=== PATIENT | female | born 1945 | race Hispanic/Latino ===

== ENCOUNTER 2016-09-14 09:12 | Outpatient (CLI) | payer MEDICARE ==
--- NOTE | 2016-09-14 15:58 | Mammography Report ---
BILATERAL DIGITAL SCREENING MAMMOGRAM with CAD: 09/14/16 09:12:00 CLINICAL: Routine screening. COMPARISON:09/02/15 FINDINGS: The breasts are predominantly fatty.Numerous benign oil cysts in the right breast. Bilateral benign calcifications. Stable bilateral circumscribed low density masses. No new mass, architectural distortion or suspicious calcifications. IMPRESSION: No mammographic evidence of malignancy. BI-RADS CATEGORY: 2 -- Benign RECOMMENDATION: Routine mammographic screening in one year. COMMENT: Patient follow-up letters are generated by our [employer] application.
== END 2016-09-14 09:13 | disposition home or self-care (01) ==
LOC: SPVWC 09:12
PROVIDERS: ATTEND Nurse Practitioner
DX: Z12.31 Encounter for screening mammogram for malignant neoplasm of breast (principal)
CPT/HCPCS: 77067; G0202

== ENCOUNTER 2017-09-16 09:53 | Outpatient (CLI) | payer MEDICARE ==
--- NOTE | 2017-09-16 14:53 | Mammography Report ---
BILATERAL DIGITAL SCREENING MAMMOGRAM with CAD: 09/16/17 09:53:00 CLINICAL: Routine screening. COMPARISON:09/14/16 FINDINGS: The breasts are mostly fatty with a few bilateral residual retroareolar fibroglandular densities.Numerous benign oil cysts of the right breast. Stable bilateral low density circumscribed masses and bilateral benign calcifications. No new mass, architectural distortion or suspicious calcifications. IMPRESSION: No mammographic evidence of malignancy. BI-RADS CATEGORY: 2 -- Benign RECOMMENDATION: Routine mammographic screening in one year. COMMENT: Patient follow-up letters are generated by our [employer] application.
== END 2017-09-16 09:54 | disposition home or self-care (01) ==
LOC: SPVWC 09:53
PROVIDERS: ATTEND Nurse Practitioner
DX: Z12.31 Encounter for screening mammogram for malignant neoplasm of breast (principal)
CPT/HCPCS: 77067

== ENCOUNTER 2018-09-19 13:13 | Outpatient (CLI) | payer MEDICARE ==
--- NOTE | 2018-09-19 16:08 | Mammography Report ---
BILATERAL DIGITAL SCREENING MAMMOGRAM with CAD: 09/19/18 13:13:00 CLINICAL: Routine screening. COMPARISON:09/16/17 FINDINGS: The breasts are almost entirely fatty.Numerous benign oil cysts of the right breast. Stable bilateral low-density circumscribed masses and bilateral benign calcifications. No new mass, architectural distortion or suspicious calcifications. IMPRESSION: No mammographic evidence of malignancy. BI-RADS CATEGORY: 2 -- Benign RECOMMENDATION: Routine mammographic screening in one year. COMMENT: Patient follow-up letters are generated by our [employer] application.
== END 2018-09-19 13:14 | disposition home or self-care (01) ==
LOC: SPVWC 13:13
PROVIDERS: ATTEND Nurse Practitioner
DX: Z12.31 Encounter for screening mammogram for malignant neoplasm of breast (principal)
CPT/HCPCS: 77067